=== PATIENT | female | born 1995 | race Caucasian/White ===

== ENCOUNTER 2016-11-27 10:13 | Emergency (ER) | payer SELFPAY ==
--- NOTE | ~2016-11-27 | ER ---
PATIENT'S NAME: MARYSOL EVANS [facility] AGE: 21 Y [address] ROOM: [place] [address] LOCATION: ED ADMIT DATE: 11/27/2016 ER/Outpatient Report DISCHARGE DATE: FAMILY PHYSICIAN: Gerald Mccollum MD ATTENDING PHYSICIAN: Shaheed Valadez TIME OF ARRIVAL: 1013 hours. TIME OF EVALUATION: 1015 hours. CHIEF COMPLAINT: Nausea and vomiting. HISTORY OF PRESENT ILLNESS: The patient is a 21-year-old female who presents to the emergency department today with a chief complaint of nausea and vomiting. She reports it started 2 days prior to arrival with a low-grade fever of 100.0. She denies any chills. Denies any diarrhea or constipation. Last bowel movement was today. She does have some right lower quadrant abdominal pain. It is throbbing. The pain is currently 5/10 in severity. PAST MEDICAL HISTORY: Bipolar and fibromyalgia. PAST SURGICAL HISTORY: [place] teeth. SOCIAL HISTORY: The patient denies any tobacco, alcohol, or illicit drug use. ALLERGIES: SULFA AND ZOFRAN. MEDICATIONS: 1. Prozac. 2. Ambien. 3. Klonopin. REVIEW OF SYSTEMS: All systems are reviewed by myself and are negative with the exception of those discussed in the HPI and Past Medical History. PHYSICAL EXAMINATION: PATIENT'S NAME: MARYSOL EVANS [facility] AGE: 21 Y [address] ROOM: [place] [address] LOCATION: [facility] ADMIT DATE: 11/27/2016 ER/Outpatient Report DISCHARGE DATE: FAMILY PHYSICIAN: Gerald Mccollum MD ATTENDING PHYSICIAN: Shaheed Valadez VITAL SIGNS: Weight 76.1 kg, blood pressure 121/81, pulse 104, respiratory rate 16, temperature 98.3, and oxygen saturation 97% on room air. GENERAL: The patient is a 21-year-old female who appears stated age, in no acute distress at this time. HEENT: Head is normocephalic and atraumatic. Pupils are equal, round, and reactive to light. Mucous membranes moist. NECK: Supple. There is no nuchal rigidity. CARDIOVASCULAR: Tachycardic. No murmurs, rubs, or gallops. LUNGS: Clear to auscultation bilaterally. No wheezes, rales, or rhonchi. ABDOMEN: Soft. Mild right lower quadrant tenderness to palpation. No rebound, rigidity, or guarding. Positive bowel sounds. MUSCULOSKELETAL: The patient moves all 4 extremities. SKIN: Warm and dry. There are no rashes or lesions noted. LABS AND X-RAYS: CBC is normal. CMP is normal. LFTs are normal. Urinalysis shows 500 leukocyte esterase, 2 to 5 wbc's, 10 to 20 epithelials, and moderate bacteria. Urine culture is pending. Urine hCG is negative. Urine GC and chlamydia are negative. LFTs normal. CMP is normal. IMPRESSION: 1. Acute urinary tract infection. 2. Acute right lower quadrant abdominal pain, nonsurgical. 3. Initial visit. EMERGENCY DEPARTMENT COURSE: The patient was brought back to the examination room. Seen and evaluated by myself. IV was established. The patient was given 1 L of normal saline. She was given 10 mg of Compazine and 25 mg of Benadryl IV. She was also given 30 mg of Toradol IV with improvement in the patient's symptoms. The patient's abdominal exam was repeated. She continues to have a nonsurgical abdominal exam at this time. I do feel she is safe for outpatient evaluation, and she certainly does not appear to be in appendicitis at this time with her presentation. However, I have discussed this possibility with her. I have asked that she follows up with primary care doctor in 1 to 2 days for re- evaluation. I have discussed return to care instructions including worsening abdominal pain or any other concerns, to return to the emergency department as soon as possible. The patient is agreeable without further questions. The patient is discharged on Macrobid and Compazine for home. SHAHEED VALADEZ DO PATIENT'S NAME: MARYSOL EVANS [facility] AGE: 21 Y [address] ROOM: [place], [place] [address] LOCATION: [facility] ADMIT DATE: 11/27/2016 ER/Outpatient Report DISCHARGE DATE: FAMILY PHYSICIAN: Gerald Mccollum MD ATTENDING PHYSICIAN: Shaheed Valadez/modl /[id number] d: 11/27/16 1323 t: 11/27/16 1351, OUTPATIENT REPORT
[2016-11-27 10:46] LABS: BASOPHIL # 0.1 K/uL (0.0-0.2); BASOPHIL % 0.7 %; EOSINOPHIL # 0.1 K/uL (0.0-0.5); EOSINOPHIL % 0.7 %; HEMATOCRIT 38.7 % (33.0-46.0); HEMOGLOBIN 13.1 g/dL (11.0-15.0); IMMATURE GRANULOCYTE # 0.1 K/uL (0.0-0.3); IMMATURE GRANULOCYTE % 1.3 %; LYMPHOCYTE # 3.1 K/uL (0.8-4.0); LYMPHOCYTE % 29.2 %; MCH 31.6 pg (27.0-34.0); MCHC 33.9 gm/dL (32.0-36.5); MCV 93.5 fl (83.0-98.0); MONOCYTE # 0.7 K/uL (0.0-1.0); MONOCYTE % 6.2 %; MPV 9.4 fl (9.4-12.4); NEUTROPHIL # (ANC) 6.5 K/uL (1.8-7.8); NEUTROPHIL % 61.9 %; NRBC % 0 /100WBC (0-0.00); PLATELET COUNT 315 K/uL (150-450); RBC 4.14 M/uL (3.50-5.00); RDW-CV 14.3 % (11.9-14.6); WBC 10.5 K/uL (4.0-11.0)
[2016-11-27 10:49] LABS: BILIRUBIN URINE NEGATIVE (NEGATIVE); BLOOD URINE NEGATIVE /UL (NEGATIVE); COLOR URINE YELLOW (YELLOW); GLUCOSE URINE NEGATIVE (NEGATIVE); KETONE URINE NEGATIVE (NEGATIVE); LEUKOCYTES URINE 500 /UL (NEGATIVE); NITRITE URINE NEGATIVE (NEGATIVE); PROTEIN URINE NEGATIVE (NEGATIVE); TURBIDITY URINE CLEAR (CLEAR); UROBILINOGEN URINE NORMAL (NORMAL)
[2016-11-27 11:02] LABS: ALBUMIN 3.6 gm/dL (3.5-5.0); ALK PHOS 73 IU/L (33-138); ALT 29 IU/L (12-78); AST 17 IU/L (10-40); BLOOD UREA NITROGEN 13 mg/dL (6-24); CALCIUM 8.4 mg/dL (8.5-10.5); CHLORIDE 105 mMol/L (96-110); CO2 28 mMol/L (22-32); CREATININE 0.9 mg/dL (0.5-1.1); ESTIMATED GFR (MDRD EQUATION) > 60; SODIUM 140 mMol/L (135-145); TOTAL BILIRUBIN 0.1 mg/dL (0.0-1.5); TOTAL PROTEIN 7.1 g/dL (6.0-8.4)
[2016-11-27 11:08] LABS: BACTERIA URINE MODERATE (NEGATIVE); MUCUS URINE 2+ (NEGATIVE); RBC URINE NEGATIVE #/HPF (NEGATIVE)
[2017-03-09] MEDS ORDERED: PROZAC40 MG PO (17:35)
[2017-03-09] MEDS ORDERED: FLEXERIL10 MG PO (17:36)
[2017-03-09] MEDS ORDERED: AMBIEN5 MG PO (17:37)
[2017-03-09] MEDS ORDERED: VRAYLAR3 MG PO (17:39)
[2017-03-09] MEDS ORDERED: NEURONTIN300 MG PO (17:41)
== END 2016-11-27 12:55 | disposition disaster alternative care site (69) ==
LOC: GMED 10:13
PROVIDERS: Emergency Medicine
DX: N39.0 Urinary tract infection, site not specified (principal); F31.9 Bipolar disorder, unspecified; Z88.2 Allergy status to sulfonamides; Z88.8 Allergy status to other drugs, medicaments and biological substances; Z79.899 Other long term (current) drug therapy
CPT/HCPCS: J0780; J1200; J1885; J7030

== ENCOUNTER 2017-02-01 19:53 | Emergency (ER) | payer SELFPAY ==
--- NOTE | ~2017-02-01 | ER ---
PATIENT'S NAME: MARYSOL EVANS [facility] AGE: 22 Y [address] ROOM: [place] [address] LOCATION: ED ADMIT DATE: 02/01/2017 ER/Outpatient Report DISCHARGE DATE: 02/01/2017 FAMILY PHYSICIAN: Gerald Mccollum MD ATTENDING PHYSICIAN: Umer Lopez Admission date and time documented in the medical record. I saw the patient at 2010 hours. CHIEF COMPLAINT: Headache, posterior neck and mid back pain. HISTORY OF PRESENT ILLNESS: This patient is a 22-year-old female, who has had a headache on top of her head over the past 2 days. She has accompanying nausea and has vomited six times since onset of the headache. She does have a history of headaches, usually gets nauseated, and has vomiting with headaches. Headache kind of radiates down into the posterior neck and then into the mid upper back. A little photophobic. No recent colds, coughs, flus, fever, chills, or sweats. No lightheadedness, dizziness, syncope, or near syncope. No fall or trauma. No eyes, ears, nose, or throat pain. No chest pain or shortness of breath. No abdominal pain. No diarrhea. No urinary frequency, urgency, or dysuria. No joint or muscle swelling, redness, or pain. No skin eruptions or rash. Does have a history of concussion, bipolar disorder. No endocrine problems. HOME MEDICATIONS: See attached medication list. ALLERGIES: SULFA, ZOFRAN. SOCIAL HISTORY: Nonsmoker, nondrinker. SIGNIFICANT PAST MEDICAL HISTORY: Fibromyalgia, bipolar disorder, ADHD, headaches, concussion, carpal tunnel. PAST SURGICAL HISTORY: [place] tooth extraction; implant of control device, left arm; D and C. REVIEW OF SYSTEMS: All systems reviewed by me are negative with the exception of those discussed in the history of present illness. PHYSICAL EXAMINATION: PATIENT'S NAME: MARYSOL EVANS [facility] AGE: 22 Y [address] ROOM: [place] [address] LOCATION: ED ADMIT DATE: 02/01/2017 ER/Outpatient Report DISCHARGE DATE: 02/01/2017 FAMILY PHYSICIAN: Gerald Mccollum MD ATTENDING PHYSICIAN: Umer Lopez VITAL SIGNS: Temperature 98, tympanic; pulse 116, regular; respiratory rate 16; blood pressure 136/68; O2 saturation on room air is 97%. [place] Coma Scale was 15. HEENT: Head: Normocephalic. Eyes: Extraocular muscles intact. PERRL. Ears: Clear TMs bilaterally. Nose: Clear. Throat: Clear. Mucous membranes moist. Teeth, jaw intact. NECK: No tenderness in the posterior neck. No restriction of range of motion. No thyromegaly or cervical adenopathy. No nuchal rigidity. SPINE: Nontender. No deformity. There is a little bit of tenderness in the paraspinal muscles between her shoulder blades to palpation. HEART: Regular. Pulses are palpable. LUNGS: Clear. Good air flow. No rales, rhonchi, or wheezes. No ribcage pain to palpation. No deformity. ABDOMEN: Soft, nondistended, and nontender. Good bowel tones. No organomegaly or abdominal masses palpable. No CVA tenderness. PELVIS: Stable. EXTREMITIES: No peripheral edema, cyanosis, or deformity. Neurovascularly intact. SKIN: Clear. No skin eruptions or rash. IMPRESSION: 1. Headache. 2. Musculoskeletal posterior neck and mid upper back pain. 3. History of fibromyalgia. 4. History of bipolar disorder. PLAN: The patient was given Toradol 60 mg plus Phenergan 50 mg IM in the emergency room. Discharged home. Observation. Activity as tolerated. Continue present home medications and care. Ice, heat, or combination to sore areas intermittently as needed. Naprosyn 500 mg 2 times a day with food x1 week with one refill. Follow up with personal physician in 2 to 3 days. Discussion ensued with the patient concerning my findings and recommendations, she understands. MD EFRAIN SULLIVAN/modl /[id number] d: 02/02/175 t: 02/02/171, OUTPATIENT REPORT
[2017-03-09] MEDS ORDERED: PROZAC40 MG PO (17:35)
[2017-03-09] MEDS ORDERED: FLEXERIL10 MG PO (17:36)
[2017-03-09] MEDS ORDERED: AMBIEN5 MG PO (17:37)
[2017-03-09] MEDS ORDERED: VRAYLAR3 MG PO (17:39)
[2017-03-09] MEDS ORDERED: NEURONTIN300 MG PO (17:41)
== END 2017-02-01 20:28 | disposition disaster alternative care site (69) ==
LOC: GMED 19:53
DX: R51 Headache (principal); M54.2 Cervicalgia; M54.6 Pain in thoracic spine; F31.9 Bipolar disorder, unspecified; M79.7 Fibromyalgia; F90.9 Attention-deficit hyperactivity disorder, unspecified type; G56.00 Carpal tunnel syndrome, unspecified upper limb; Z88.8 Allergy status to other drugs, medicaments and biological substances; Z88.2 Allergy status to sulfonamides; Z98.890 Other specified postprocedural states; Z79.899 Other long term (current) drug therapy
CPT/HCPCS: J1885; J2550

== ENCOUNTER 2017-02-04 08:18 | Emergency (ER) | payer SELFPAY ==
--- NOTE | ~2017-02-04 | ER ---
PATIENT'S NAME: MARYSOL EVANS [facility] AGE: 22 Y [address] ROOM: [place] [address] LOCATION: ED ADMIT DATE: 02/04/2017 ER/Outpatient Report DISCHARGE DATE: 02/04/2017 FAMILY PHYSICIAN: Gilberto Nathan ATTENDING PHYSICIAN: Dwight Lopes CHIEF COMPLAINT: Back pain. HISTORY OF PRESENT ILLNESS: The patient states that she has back pain in her upper midback that radiates all the way across and down both legs. It hurts to sit still, it feels better to move, and it feels better to rub her legs. She denies any fevers, chills, or other neurologic sensation changes. She denies any weakness of the legs. The right-side is slightly worse than the left. She has not taken anything really to make this better. She has no recent known injuries. No other acute issues. PAST MEDICAL HISTORY: Notable for bipolar disease, fibromyalgia, tendinitis, depression, and carpal tunnel syndrome. PAST SURGICAL HISTORY: Includes a D and C, last menstrual period is January 11. SOCIAL HISTORY: Denies alcohol, tobacco, or drug use. The patient lives in [place], [place] and she works at [employer]. MEDICATIONS: 1. Tylenol. 2. Prozac. 3. Vraylar. 4. Ambien. ALLERGIES: INCLUDE SULFA, ZOFRAN, AND PEPPER RADHA CHEESE. REVIEW OF SYSTEMS: All systems reviewed and negative except as noted in the HPI. PHYSICAL EXAMINATION: VITAL SIGNS: Blood pressure 117/62, pulse 100, respiratory rate 16, temp 97.6, and SpO2 is 97% on room air. Pain 7/10. GENERAL: An age-appropriate female, in no obvious pain or distress, sitting PATIENT'S NAME: THIEN EVANSA Tashi [facility] AGE: 22 Y [address] ROOM: [place] [address] LOCATION: [facility] ADMIT DATE: 02/04/2017 ER/Outpatient Report DISCHARGE DATE: 02/04/2017 FAMILY PHYSICIAN: Gilberto Nathan ATTENDING PHYSICIAN: Dwight Lopes upright on the exam table, rubbing her thighs vigorously. NEURO: Awake and alert. GCS is 15. No obvious sensory deficits. No weakness or asymmetry on exam. HEENT: Normocephalic, atraumatic. Eyes are PERRL. Oropharynx is clear. NECK: Supple. Trachea is midline. CHEST: Heart is regular rate and rhythm with no murmurs. LUNGS: Clear to auscultation bilateral with no rhonchi, wheezes, or rales. ABDOMEN: Soft, nontender, and nondistended. No rebound or guarding. EXTREMITIES: Warm and well-perfused. BACK: Normal to inspection. No spinal tenderness. She states that her pain starts at her [id number] thoracic spine. No CVA tenderness. No other abnormality. SKIN: Warm, dry, and intact. No rashes. NEUROLOGIC: Patellar and Achilles reflexes are 2+ bilateral. Babinski reveals upgoing toes bilateral briskly. No sensory deficits to light touch. LABS AND X-RAYS: No imaging was obtained. Labs: White count is 9.7, ESR is 26, and CRP is 0.88. No significant abnormalities on the CMS. IMPRESSION: Musculoskeletal back pain with unclear sensory findings in the legs. EMERGENCY DEPARTMENT COURSE: The patient was seen and evaluated. Her presentation is not consistent with cauda equina syndrome nor is it consistent with DVT. Sciatica would be very unlikely to present like this. I do not think that this is multiple sclerosis. Her inflammatory markers are very reassuring making epidural abscess or myositis much more likely. The patient seemed to be chiefly worried about the discomfort in her thighs rather than the back on multiple reevaluations. She has no focal neurologic deficits and is otherwise okay. The patient will be discharged with some diazepam for possible muscle spasm and some anxiety. She is to follow up with primary care as needed and return if worse. MD SHANE FLANAGAN/va /[id number] d: 02/04/17 2334 t: 02/05/17 1011, OUTPATIENT REPORT
[2017-02-04 08:55] LABS: BASOPHIL # 0.1 K/uL (0.0-0.2); BASOPHIL % 0.5 %; EOSINOPHIL # 0.1 K/uL (0.0-0.5); EOSINOPHIL % 1.2 %; HEMATOCRIT 37.5 % (33.0-46.0); HEMOGLOBIN 12.6 g/dL (11.0-15.0); IMMATURE GRANULOCYTE # 0.1 K/uL (0.0-0.3); IMMATURE GRANULOCYTE % 0.9 %; LYMPHOCYTE # 2.7 K/uL (0.8-4.0); LYMPHOCYTE % 27.3 %; MCH 30.9 pg (27.0-34.0); MCHC 33.6 gm/dL (32.0-36.5); MCV 91.9 fl (83.0-98.0); MONOCYTE # 0.9 K/uL (0.0-1.0); MONOCYTE % 9.5 %; MPV 9.3 fl (9.4-12.4); NEUTROPHIL # (ANC) 5.9 K/uL (1.8-7.8); NEUTROPHIL % 60.6 %; NRBC % 0 /100WBC (0-0.00); PLATELET COUNT 309 K/uL (150-450); RBC 4.08 M/uL (3.50-5.00); WBC 9.7 K/uL (4.0-11.0)
[2017-02-04 08:56] LABS: RDW-CV 12.2 % (11.9-14.6)
[2017-02-04 09:16] LABS: ALBUMIN 3.4 gm/dL (3.5-5.0); ALK PHOS 88 IU/L (33-138); ALT 30 IU/L (12-78); ANION GAP 11.9 (10.0-19.0); AST 16 IU/L (10-40); BLOOD UREA NITROGEN 12 mg/dL (6-24); CALCIUM 8.4 mg/dL (8.5-10.5); CHLORIDE 108 mMol/L (96-110); CO2 25 mMol/L (22-32); ESTIMATED GFR (MDRD EQUATION) > 60; POTASSIUM 3.9 mMol/L (3.7-5.1); SODIUM 141 mMol/L (135-145); TOTAL BILIRUBIN 0.3 mg/dL (0.0-1.5)
[2017-03-09] MEDS ORDERED: PROZAC40 MG PO (17:35)
[2017-03-09] MEDS ORDERED: FLEXERIL10 MG PO (17:36)
[2017-03-09] MEDS ORDERED: AMBIEN5 MG PO (17:37)
[2017-03-09] MEDS ORDERED: VRAYLAR3 MG PO (17:39)
[2017-03-09] MEDS ORDERED: NEURONTIN300 MG PO (17:41)
== END 2017-02-04 10:17 | disposition disaster alternative care site (69) ==
LOC: GMED 08:18
PROVIDERS: Emergency Medicine
DX: M54.6 Pain in thoracic spine (principal); M79.7 Fibromyalgia; F31.9 Bipolar disorder, unspecified; Z79.899 Other long term (current) drug therapy; Z88.2 Allergy status to sulfonamides; Z88.8 Allergy status to other drugs, medicaments and biological substances; Z91.011 Allergy to milk products; Z98.890 Other specified postprocedural states

== ENCOUNTER 2017-02-15 18:35 | Emergency (ER) | payer SELFPAY ==
--- NOTE | ~2017-02-15 | ER ---
PATIENT'S NAME: MARYSOL EVANS [facility] AGE: 22 Y [address] ROOM: [place] [address] LOCATION: ED ADMIT DATE: 02/15/2017 ER/Outpatient Report DISCHARGE DATE: 02/15/2017 FAMILY PHYSICIAN: Gilberto Nathan ATTENDING PHYSICIAN: Umer Robins CHIEF COMPLAINT: Left leg pain and swelling. HISTORY OF PRESENT ILLNESS: The patient has had pain in her left leg particularly her left knee for the past few days. She was seen at [facility] yesterday and was told that she should wear a brace on her knee that there was nothing wrong with it. She did purchase a brace and has been wearing it now. Today, she notes that her left ankle is swollen and she feels like her pain is worse. Rating it as 10/10. PAST MEDICAL HISTORY: She has bipolar, has fibromyalgia, carpal tunnel tendonitis, vaginitis. ALLERGIES: INCLUDES ZOFRAN. HOME MEDICATIONS: Per nursing record. REVIEW OF SYSTEMS: CONSTITUTIONAL: The patient denies any fevers, chills, or sweats. She denies any injury to her leg. HEENT: She has no complaints. CARDIOVASCULAR: No complaints. RESPIRATORY: No complaints. GI: No complaints. : No complaints. NEURO: No complaints. She does not have any weakness. She is able to ambulate without difficulty. No paresthesias. MUSCULOSKELETAL: She states the pain is throughout the entire left leg. She states it is no better now as she has been wearing this knee brace since yesterday. She complains of swelling now in the left ankle and states it also hurts. She denies any back pain. HEMATOLOGY: No complaints. SKIN: No complaints. ENDOCRINE: No complaints. PSYCH: The patient states she is "crazy" and she does see Rosa Holt APRN for her psychiatric concerns. PATIENT'S NAME: MARYSOL EVANS [facility] AGE: 22 Y [address] ROOM: [place] [address] LOCATION: ED ADMIT DATE: 02/15/2017 ER/Outpatient Report DISCHARGE DATE: 02/15/2017 FAMILY PHYSICIAN: Gilberto Nathan ATTENDING PHYSICIAN: Umer Robins PHYSICAL EXAMINATION: VITAL SIGNS: Temperature is 96.8 tympanically, pulse of 105, respiratory rate is 20, blood pressure 106/57, oxygen saturation 97% on room air. GENERAL APPEARANCE: She is alert and oriented, pink, warm, and dry, in no acute distress. HEENT: Head is normocephalic. Eyes; PERRL. Ears and nose were not examined. Pharynx without edema. Mucous membranes are moist. NECK: Supple. Trachea is midline. No lymphadenopathy. LUNGS: Clear to anterior-posterior auscultation. HEART: Rate is regular. Normal S1, S2. No murmurs. ABDOMEN: Soft, nontender. EXTREMITIES: There is some edema of the left ankle. This ankle is nontender to palpation. There is no erythema or edema of the knee. No erythema of the entire leg. There is no edema over the knee. No effusion palpable. No tenderness really with palpation. She complains of pain when the leg is raised off the bed. She is, however, able to hold the leg there without any increase in pain. It is noted that her knees do hyperextend bilaterally equally. She has no pain in her lumbar spine. NEURO: Cranial nerves II through XII are intact. Her motor strength is 5/5 bilaterally in her upper and lower extremities. IMPRESSION AND ASSESSMENT: Left leg pain in the patient with chronic pain. EMERGENCY DEPARTMENT COURSE: I spent quite a bit of time talking to the patient about the fact that without any trauma, there is not a need for an x-ray at this time. I explained to the patient that her knee brace, which was quite tightly placed around her left knee has likely led to the edema in her lower leg. I recommend that she either remove the brace or apply it just intermittently. The patient does have an appointment scheduled with physical therapy for two days from now and an appointment with primary care provider for six days from now. I recommend that she keep the physical therapy appointment and move her appointment with her primary care provider to an earlier date. The patient is going to continue her pain management strategies that she has been using at home. She was in agreement with this plan and honestly did not appear to have much pain at all while in the emergency room. DESMOND WILSON APRN FOR UMER ROBINS MD DP/eliudl PATIENT'S NAME: MARYSOL EVANS [facility] AGE: 22 Y [address] ROOM: [place] [address] LOCATION: [facility] ADMIT DATE: 02/15/2017 ER/Outpatient Report DISCHARGE DATE: 02/15/2017 FAMILY PHYSICIAN: Gilberto Nathan ATTENDING PHYSICIAN: Umer Robins /[id number] d: 02/16/17 0148 t: 03/11/17 1552, OUTPATIENT REPORT
[2017-03-09] MEDS ORDERED: PROZAC40 MG PO (17:35)
[2017-03-09] MEDS ORDERED: FLEXERIL10 MG PO (17:36)
[2017-03-09] MEDS ORDERED: AMBIEN5 MG PO (17:37)
[2017-03-09] MEDS ORDERED: VRAYLAR3 MG PO (17:39)
[2017-03-09] MEDS ORDERED: NEURONTIN300 MG PO (17:41)
== END 2017-02-15 20:28 | disposition disaster alternative care site (69) ==
LOC: GMED 18:35
DX: M79.605 Pain in left leg (principal); G89.29 Other chronic pain; F31.9 Bipolar disorder, unspecified; R60.0 Localized edema; M79.7 Fibromyalgia; Z88.8 Allergy status to other drugs, medicaments and biological substances

== ENCOUNTER 2017-03-16 12:30 | Emergency (ER) | payer SELFPAY ==
--- NOTE | ~2017-03-16 | ER ---
PATIENT'S NAME: MARYSOL EVANS [facility] AGE: 22 Y [address] ROOM: [place] [address] LOCATION: [facility] ADMIT DATE: 03/16/2017 ER/Outpatient Report DISCHARGE DATE: 03/16/2017 FAMILY PHYSICIAN: Gerald Mccollum MD ATTENDING PHYSICIAN: Shaheed Valadez TIME OF ARRIVAL: 1230 hours. TIME OF EVALUATION: 1235 hours. CHIEF COMPLAINT: Body aches and headache. HISTORY OF PRESENT ILLNESS: The patient is a 22-year-old female who presents to the emergency department today with a chief complaint of body aches and headaches. She reports this started last night. She reports it is primarily in her feet and knees, but then does go up throughout her body. She also complains of headache. It is kind of sharp, 7/10 in severity. It is not the worst headache of her life. She does have a history of similar episodes in the past. sudden onset. The patient denies any fevers or chills. She does have some nausea. No vomiting. No diarrhea or constipation. PAST MEDICAL HISTORY: Fibromyalgia and bipolar. PAST SURGICAL HISTORY: [place] teeth, carpal tunnel, and D and C. SOCIAL HISTORY: The patient smokes. She denies any alcohol or illicit drug use. ALLERGIES: TO SULFA AND ZOFRAN. MEDICATIONS: Please see list. PRIMARY CARE DOCTOR: Gerald Mccollum MD, in [place]. REVIEW OF SYSTEMS: All systems are reviewed by myself and negative with the exception of those PATIENT'S NAME: MARYSOL EVANS [facility] AGE: 22 Y [address] ROOM: [place] [address] LOCATION: [facility] ADMIT DATE: 03/16/2017 ER/Outpatient Report DISCHARGE DATE: 03/16/2017 FAMILY PHYSICIAN: Gerald Mccollum MD ATTENDING PHYSICIAN: Shaheed Valadez discussed in HPI and past medical history. PHYSICAL EXAMINATION: VITAL SIGNS: Weight 78 kg. Blood pressure 116/62, pulse 77, respiratory rate 18, temperature 98.0, and oxygen saturation 98% on room air. GENERAL: The patient is a 22-year-old female, who appears stated age, in no acute distress. HEENT: Normocephalic, atraumatic. Pupils are equal, round, and reactive to light. Oropharynx is clear. NECK: Supple. There is no nuchal rigidity. CARDIOVASCULAR: Regular rate and rhythm. No murmurs, rubs, or gallops. LUNGS: Clear to auscultation bilaterally. No wheezes, rales, or rhonchi. ABDOMEN: Soft, nontender, and nondistended. No rebound, rigidity, or guarding. MUSCULOSKELETAL: The patient moves all 4 extremities. Full range of motion. 5/5 muscle strength. SKIN: Warm and dry. No rashes or lesions noted. LABORATORY DATA AND X-RAYS: None. IMPRESSION: 1. Generalized body aches. 2. Cephalgia. 3. Initial visit. EMERGENCY DEPARTMENT COURSE: The patient brought back to the examination room. Seen and evaluated by myself. The patient is given 60 mg of Toradol IM as well as Compazine 10 mg IM and Benadryl 50 mg IM. I have discussed the results of the history and physical with the patient. She does have an excellent overall clinical appearance at this time with normal vital signs at this time. I do feel she is safe for outpatient evaluation and treatment management. I have written a prescription for Compazine for home for nausea and headache as well as Naprosyn. I have discussed return to care instructions including worsening symptoms or any other concerns to return to the emergency department as soon as possible. I have asked the patient to follow up with Dr. Mccollum in 2 to 3 days for re-evaluation. The patient is agreeable without further questions. DISPOSITION: The patient is discharged home in good condition. PATIENT'S NAME: MARYSOL EVANS [facility] AGE: 22 Y [address] ROOM: [place], [place] [address] LOCATION: [facility] ADMIT DATE: 03/16/2017 ER/Outpatient Report DISCHARGE DATE: 03/16/2017 FAMILY PHYSICIAN: Gerald Mccollum MD ATTENDING PHYSICIAN: Shaheed Valadez DO KJR/va /[id number] d: 03/16/17 1843 t: 03/17/17 1608, OUTPATIENT REPORT
[~2017-03-16 12:30] MED LIST: AMBIEN5 MG PO; FLEXERIL10 MG PO; NEURONTIN300 MG PO; PROZAC40 MG PO; VRAYLAR3 MG PO
== END 2017-03-16 13:02 | disposition disaster alternative care site (69) ==
LOC: GMED 12:30
DX: R51 Headache (principal); F31.9 Bipolar disorder, unspecified; F17.210 Nicotine dependence, cigarettes, uncomplicated; Z88.2 Allergy status to sulfonamides; Z88.8 Allergy status to other drugs, medicaments and biological substances; Z79.899 Other long term (current) drug therapy
CPT/HCPCS: J0780; J1200; J1885

== ENCOUNTER 2017-04-01 18:33 | Emergency (ER) | payer SELFPAY ==
--- NOTE | ~2017-04-01 | ER ---
PATIENT'S NAME: MARYSOL EVANS [facility] AGE: 22 Y [address] ROOM: [place] [address] LOCATION: ED ADMIT DATE: 04/01/2017 ER/Outpatient Report DISCHARGE DATE: 04/01/2017 FAMILY PHYSICIAN: Gerald Mccollum MD ATTENDING PHYSICIAN: Shaheed Valadez Time of Arrival: 1835. Time of Exam: 1850. CHIEF COMPLAINT: Vomiting. HISTORY OF PRESENT ILLNESS: The patient states she has not felt well for the past week. Has been vomiting every time she tries to the eat something. She has some pain in the lower pelvic region. Right is a little bit worse than left, has been having normal bowel movements. Last bowel movement was this morning. She states her last menstrual period was in February. Her period scheduled to start any time. She did do a urine test yesterday and it was negative. Denies having fever or chills. Does have some urine frequency at times. ALLERGIES: SULFA AND ZOFRAN. CURRENT MEDICATIONS: On the chart and reviewed by me. PAST MEDICAL HISTORY: Bipolar, fibromyalgia, carpal tunnel, and tendinitis. PAST SURGICAL HISTORY: Negative. SOCIAL HISTORY: She denies use of tobacco, drugs, or alcohol. She is sexually active with one partner. Does not use control. REVIEW OF SYSTEMS: All negative other than those mentioned in the HPI. PHYSICAL EXAMINATION: VITAL SIGNS: She weighed 77.9 kg, blood pressure is 114/71, pulse of 93, respirations 16, temperature of 98.3 tympanic, and O2 saturation was 97% on room air. GENERAL: She is awake, alert, and oriented x4. PATIENT'S NAME: MARYSOL EVANS [facility] AGE: 22 Y [address] ROOM: [place] [address] LOCATION: [facility] ADMIT DATE: 04/01/2017 ER/Outpatient Report DISCHARGE DATE: 04/01/2017 FAMILY PHYSICIAN: Gerald Mccollum MD ATTENDING PHYSICIAN: Shaheed Valadez SKIN: Tower, warm, and dry. RESPIRATIONS: Even and nonlabored. [place] Coma Scale is 15. Lung sounds are clear throughout. HEART: Regular rate and rhythm. ABDOMEN: Soft, nondistended. Bowel sounds are present. No organomegaly noted. No increased pain with deep palpation of the lower abdomen. EMERGENCY DEPARTMENT COURSE: Saline lock was initiated. Fluids of normal saline were started at a wide- open rate. She was given Compazine 10 mg IV. CBC is within normal limits. Chem panel is within normal limits. Her serum hCG is negative. She was able to drink some Gatorade without having any increased nausea or vomiting. IMPRESSION: Mild dehydration. PLAN: Home, rest, fluids. Slowly increase diet. Avoid greasy foods for the next week. Prescription was written for Phenergan to take as needed for nausea. If symptoms persist, she should follow up with her primary provider in the next 2 or 3 days. She verbalized understanding. SY PAREDES APRN FOR DO KAYODE SCHULTZ/va /[id number] d: 04/02/17 0053 t: 04/04/17 1223, OUTPATIENT REPORT
[2017-04-01 19:18] LABS: BASOPHIL # 0.1 K/uL (0.0-0.2); BASOPHIL % 0.5 %; EOSINOPHIL # 0.1 K/uL (0.0-0.5); EOSINOPHIL % 0.6 %; HEMATOCRIT 37.9 % (33.0-46.0); HEMOGLOBIN 12.9 g/dL (11.0-15.0); IMMATURE GRANULOCYTE # 0.1 K/uL (0.0-0.3); IMMATURE GRANULOCYTE % 0.5 %; LYMPHOCYTE # 3.3 K/uL (0.8-4.0); LYMPHOCYTE % 32.6 %; MCV 91.1 fl (83.0-98.0); MONOCYTE # 0.9 K/uL (0.0-1.0); MONOCYTE % 8.4 %; MPV 9.4 fl (9.4-12.4); NEUTROPHIL # (ANC) 5.9 K/uL (1.8-7.8); NEUTROPHIL % 57.4 %; NRBC % 0 /100WBC (0-0.00); PLATELET COUNT 321 K/uL (150-450); RBC 4.16 M/uL (3.50-5.00); RDW-CV 13.4 % (11.9-14.6); WBC 10.3 K/uL (4.0-11.0)
[2017-04-01 19:37] LABS: ALBUMIN 3.6 gm/dL (3.5-5.0); ALK PHOS 75 IU/L (33-138); ALT 24 IU/L (12-78); ANION GAP 10.7 (10.0-19.0); AST 13 IU/L (10-40); BLOOD UREA NITROGEN 10 mg/dL (6-24); CALCIUM 8.5 mg/dL (8.5-10.5); CHLORIDE 107 mMol/L (96-110); CO2 28 mMol/L (22-32); CREATININE 0.9 mg/dL (0.5-1.1); POTASSIUM 3.7 mMol/L (3.7-5.1); SODIUM 142 mMol/L (135-145); TOTAL BILIRUBIN 0.3 mg/dL (0.0-1.5); TOTAL PROTEIN 6.9 g/dL (6.0-8.4)
== END 2017-04-01 20:12 | disposition disaster alternative care site (69) ==
LOC: GMED 18:33
PROVIDERS: Nurse Practitioner Family
DX: E86.0 Dehydration (principal); F31.9 Bipolar disorder, unspecified; Z88.2 Allergy status to sulfonamides; Z88.8 Allergy status to other drugs, medicaments and biological substances; Z79.899 Other long term (current) drug therapy
CPT/HCPCS: J0780; J7030

== ENCOUNTER 2017-05-28 07:00 | Emergency (ER) | payer SELFPAY ==
--- NOTE | ~2017-05-28 | ER ---
PATIENT'S NAME: [facility] AGE: 22 Y [address] ROOM: [place] [id number] LOCATION: [facility] ADMIT DATE: 05/28/2017 ER/Outpatient Report DISCHARGE DATE: 05/28/2017 FAMILY PHYSICIAN: Gerald Mccollum MD ATTENDING PHYSICIAN: Christa Fay Time of Arrival: 0700 hours. Time of Evaluation/Seen: 0712 hours. IDENTIFICATION: A 22-year-old female. CHIEF COMPLAINT: Abdominal pain. HISTORY OF PRESENT ILLNESS: When I asked the patient why she was here she said "my stomach and I have been throwing up, and I am really lightheaded." She said this has been going on for [address] Mccollum at the end of April and he prescribed her amoxicillin for this. I asked her why and she said "because I had a virus." He thought she had an upper respiratory infection. She says he gave her amoxicillin. She has been vomiting 2 to 3 times per day for 1 month. No diarrhea. She had a T-max of 100 last night, and "I am always cold." She told the nurse when she arrived "I need a note for work." She told me that her boss called her this morning and said she needed to come in to get checked and a note for work, because these symptoms have been going on and she is worried about her. The patient states that she did a test at home x2. One was negative and one was positive. Her last menstrual period was 05/07/2017. PAST MEDICAL HISTORY: ALLERGIES: SULFA AND ZOFRAN. SHE STATES THAT SULFA CAUSES HER TO "I GET REALLY BIG," AND ZOFRAN CAUSES "MY RIGHT SIDE OF MY BODY SWELLS UP." CURRENT MEDICATIONS: Denies. MEDICAL PROBLEMS: 1. Bipolar disorder. 2. Borderline personality disorder. 3. Peptic ulcer disease, one year ago. 4. Fibromyalgia. PATIENT'S NAME: [facility] AGE: 22 Y [address] ROOM: [place] [address] LOCATION: ED ADMIT DATE: 05/28/2017 ER/Outpatient Report DISCHARGE DATE: 05/28/2017 FAMILY PHYSICIAN: Gerald Mccollum MD ATTENDING PHYSICIAN: Christa Fay PAST SURGICAL HISTORY: Prior Surgeries: 1. She is a G3, P2, spontaneous AB1. 2. Status post D and C, two years ago. FAMILY HISTORY: No pertinent family history identified. REVIEW OF SYSTEMS: All systems were reviewed and negative other than what is noted in the HPI. SOCIAL HISTORY: The patient lives in [place]. Works at [employer] in [place], and she was in [place] because she was dropping her boyfriend off at work. PHYSICAL EXAMINATION: VITAL SIGNS: Height 5 feet 2 inches and weight 77.5 kg. Blood pressure 153/66, pulse 95, respiratory rate 16, temperature 97.9, and saturations 97%. GENERAL: A 22-year-old female in no acute distress. HEENT: Head; normocephalic and atraumatic. Ears; TMs translucent in both ears. Eyes; pupils equal and reactive to light and accommodation. Extraocular movements intact. Nose; mucosa pink. No lesions or drainage. Mouth; no lesions. Pharynx, benign. NECK: Supple. No lymphadenopathy. Mucous membranes are moist. LUNGS: Clear to auscultation. HEART: Regular rate and rhythm. No murmur, rub, or gallop. ABDOMEN: Bowel sounds present. Soft, nondistended, and minimally tender to deep palpation. No rebound or guarding. SKIN: [place], warm, and dry. No lesions or rashes noted. NEUROLOGIC: The patient is alert and oriented. No focal deficit. EXTREMITIES: No lower extremity edema. LABORATORY DATA AND IMAGING STUDIES: UA; specific gravity of 1.015, pH 6.5, leukocytes 500, nitrites positive, 20- 50 white cells, 10-20 epithelial cells, and many bacteria. Urine-hCG; negative. Hemoglobin 12.4, hematocrit 35.8, platelets 283,000, and white count 8.8 with a normal differential. Sodium 139, potassium 4.0, chloride 108, CO2 of 24, BUN 15, creatinine 0.9, and blood sugar 98. Liver enzymes, normal. Amylase 35, lipase 115. EMERGENCY DEPARTMENT COURSE: When patient was notified that her urine-hCG was negative, she demanded a serum test. Quantitative hCG is 20 consistent with three-week intrauterine which is consistent with her LMP of 05/07/2017. PATIENT'S NAME: [facility] AGE: 22 Y [address] ROOM: [place] [address] LOCATION: [facility] ADMIT DATE: 05/28/2017 ER/Outpatient Report DISCHARGE DATE: 05/28/2017 FAMILY PHYSICIAN: Gerald Mccollum MD ATTENDING PHYSICIAN: Christa Fay IMPRESSION AND PLAN: 1. Early three weeks by last menstrual period consistent with the serum hCG. 2. Urinary tract infection. Plan: Clear liquids as tolerated. Advance diet as tolerated. Keflex 500 mg t.i.d. for 7 days. Follow up with Dr. Mccollum in 1 to 2 days. Follow up sooner if any problems or concerns. I did give her a note for work, and a copy has been included in the chart. CHRISTA FAY MD CAR/modl /[id number] d: 05/29/17 1639 t: 05/31/17 1500, OUTPATIENT REPORT
[2017-05-28 07:35] LABS: BILIRUBIN URINE NEGATIVE (NEGATIVE); BLOOD URINE NEGATIVE /UL (NEGATIVE); COLOR URINE YELLOW (YELLOW); GLUCOSE URINE NEGATIVE (NEGATIVE); KETONE URINE NEGATIVE (NEGATIVE); LEUKOCYTES URINE 500 /UL (NEGATIVE); NITRITE URINE POSITIVE (NEGATIVE); PH URINE 6.5 (4.0-8.0); PROTEIN URINE NEGATIVE (NEGATIVE); SPEC GRAVITY URINE 1.015 (1.003-1.035); TURBIDITY URINE CLEAR (CLEAR); UROBILINOGEN URINE NORMAL (NORMAL)
[2017-05-28 07:46] LABS: WBC URINE 20-50 #/HPF (NEGATIVE)
[2017-05-28 07:47] LABS: RBC URINE NEGATIVE #/HPF (NEGATIVE)
[2017-05-28 07:48] LABS: BACTERIA URINE MANY (NEGATIVE)
[2017-05-28 07:58] LABS: BASOPHIL # 0.1 K/uL (0.0-0.2); BASOPHIL % 0.8 %; EOSINOPHIL # 0.1 K/uL (0.0-0.5); HEMATOCRIT 35.8 % (33.0-46.0); HEMOGLOBIN 12.4 g/dL (11.0-15.0); IMMATURE GRANULOCYTE % 0.5 %; LYMPHOCYTE # 2.3 K/uL (0.8-4.0); LYMPHOCYTE % 26.7 %; MCH 31.4 pg (27.0-34.0); MCHC 34.6 gm/dL (32.0-36.5); MCV 90.6 fl (83.0-98.0); MONOCYTE # 0.9 K/uL (0.0-1.0); MONOCYTE % 10.6 %; MPV 9.4 fl (9.4-12.4); NEUTROPHIL # (ANC) 5.3 K/uL (1.8-7.8); NEUTROPHIL % 60.4 %; NRBC % 0 /100WBC (0-0.00); PLATELET COUNT 283 K/uL (150-450); RBC 3.95 M/uL (3.50-5.00); RDW-CV 13.2 % (11.9-14.6); WBC 8.8 K/uL (4.0-11.0)
[2017-05-28 08:14] LABS: ALBUMIN 3.2 gm/dL (3.5-5.0); CALCIUM 8.3 mg/dL (8.5-10.5); CREATININE 0.9 mg/dL (0.5-1.1); TOTAL PROTEIN 6.5 g/dL (6.0-8.4)
[2017-05-28 08:16] LABS: TOTAL BILIRUBIN 0.2 mg/dL (0.0-1.5)
== END 2017-05-28 09:23 | disposition disaster alternative care site (69) ==
LOC: GMED 07:00
PROVIDERS: Family Medicine
DX: O23.41 Unspecified infection of urinary tract in pregnancy, first trimester (principal); O99.341 Other mental disorders complicating pregnancy, first trimester; F31.9 Bipolar disorder, unspecified; M79.7 Fibromyalgia; F60.3 Borderline personality disorder; Z3A.01 Less than 8 weeks gestation of pregnancy; Z88.2 Allergy status to sulfonamides; Z88.8 Allergy status to other drugs, medicaments and biological substances